=== PATIENT | female | born 1970 | race Caucasian/White ===

== ENCOUNTER 2024-08-29 13:27 | Emergency (ER) | payer OTHER, SELFPAY ==
[2024-08-29 13:32] VITALS: BP 119/91
[2024-08-29 13:33] VITALS: BP 119/91
--- NOTE | 2024-08-29 13:49 | ED.GENMED ---
History of Present Illness
General
Chief Complaint: Cardiac Symptoms
Source: patient
Time Seen by Provider: 08/29/24 13:37
History of Present Illness
History of Present Illness:
53-year-old female presents to the emergency room for evaluation of palpitations,, mild chest tightness, dizziness, nausea and vomiting. Symptoms have been present for the past 8 days or so. No known fever. Patient denies any sore throat. She
has a very mild headache. She has been ambulating without difficulty. Patient states she feels some dizziness when she looks downward. She states it may be a sense of motion but is vague about it. Patient is prescribed Lexapro but only takes it
rarely. She vapes nicotine. Patient has a history of a mastectomy and bilateral salpingo-oophorectomy for breast cancer. She has not taken any [id number]-[id number] medications. Patient was at an urgent care who referred her to the emergency room.
Phy Exam
Physical Exam
Physical Exam:
General: Awake, Alert, Oriented X3. No acute distress. Mildly anxious.
Vitals: unremarkable
Head: Atraumatic
Eyes: Pupils equal, EOMI
Throat: Airway intact, no exudates
Neck: Trachea midline
Lungs: Clear and equal b/l
Heart: Regular rate, no murmurs
Abd: Soft, Nontender, No pulsatile mass
Neuro: Nonfocal
Skin: Warm, dry, no rash
Extremities: pulses equal b/l, no edema
Course
Orders/Labs/Results
Orders:
Orders
08/29/24 13:29
Electrocardiogram (*1) Urgent
Reason for Study: Tachycardia
EKG- Treatment ONCE
08/29/24 13:42
Complete Blood Count/With Diff Urgent
08/29/24 13:48
0.9% Sodium Chloride 1000 ml [Nss] 1,000 ml IV BOLUS
08/29/24 13:50
Add On- LAB Urgent
Tests Added?: magnesium, phosphorous
08/29/24 14:09
Comprehensive Metabolic Panel Urgent
Magnesium Urgent
Phosphorus Urgent
08/29/24 14:38
Troponin I Urgent
08/29/24 15:24
Meclizine [Antivert] 25 mg PO NOW STA
08/29/24 15:25
CT Head W/o Iv Contrast Urgent
Comment:
Reason For Exam: dizzy
Abnormal Lab Results
08/29/24 08/29/24
13:42 14:09
MCH 31.8 H pg
(27.0-31.0)
BUN 18 H mg/dl
(7-17)
Glucose 112 H mg/dl
(70-99)
08/29/24 13:42
08/29/24 14:09
Vital Signs
Initial and Last Documented VS:
Initial Vital Signs
Temp
98.3 F
08/29/24 13:30
Last Documented Vital Signs
Temp Pulse Resp BP Pulse Ox
98.3 F 82 12 126/80 99
08/29/24 13:30 08/29/24 18:00 08/29/24 18:00 08/29/24 18:00 08/29/24 18:00
MDM/Problems Addressed
Differential Diagnosis Includes:
PACs, PVCs, electrolyte abnormality, viral illness, BPPV
MDM/Problems Addressed:
Patient presents with multiple complaints including nausea, vomiting, dizziness, chest tightness, palpitations. EKG here is unremarkable. She has had no dysrhythmia noted on the monitoring engineer. Labs are reassuring. She is tolerated oral intake
here. CT of the head shows no acute abnormality. After discussing the results of her testing I had the patient ambulate about the room. She was able to do so without any difficulty. Her speech is clear. There is no evidence of an unstable
process necessitating further workup emergency room workup or hospitalization. Patient stable for discharge home and follow-up with her primary care provider. Suspect she has either a viral type illness or benign positional vertigo.
*Radiology
Radiology exam reviewed: radiology read reviewed
*Pulse Oximetry
Patient hypoxic: no
*EKG
Interpreted by ED Provider?: Yes
Heart Rate: 95
Rate: normal
Rhythm: sinus
Belva: normal axis
Interval: normal interval
QRS Pattern: normal QRS
Ischemia: no ischemia
*Learning Coach Interpretation
Rate: normal
Interpretation: normal
Heart Rate: 95
Rhythm: sinus
*Critical Care Note
Total Time (30-74mins, 75-104mins- exclusive of procedures): Not Applicable
ED Attending Note
-
Portions of this chart may have been created with voice recognition software.� Occasional wrong word or��sound alike� substitutions may have occurred due to the inherent limitations of voice recognition software.
Discharge Plan
Departure
Patient Disposition: Home (Routine Discharge)
Date of Disposition: 08/29/24
Time of Disposition: 18:11
Patient with high blood pressure during this ER visit?: No
Condition: Good
Discharge Problem:
Palpitations, Dizziness
Instructions: Dizziness in adults - ED discharge instructions, Chest Pain PCP Follow Up
Referrals:
Abebe Pack, DO [Family Provider] -
Activity Restrictions/Additional Instructions:
You EKG, Head Ct and blood work (including a troponin) are all normal. Your vital signs have been normal as well. I suspect your dizziness is benign positional vertigo or a viral illness. You can take meclizine, which you can get over the
counter, if the dizziness continues to bother you. There is no evidence for an unstable condition and we recommend you follow up with your family doctor.
Interventions
Interventions:
*Risk Screen - Suicide Last Done: 08/29/24 13:34
*General Assessment Last Done: 08/29/24 13:34
*Neglect/Abuse Screening Last Done: 08/29/24 13:34
*ED- Fall Risk Assessment Last Done: 08/29/24 13:34
*ED COVID-19 Vaccine History Last Done: 08/29/24 13:34
*Nursing Disposition Last Done: 08/29/24 18:27
ED- Pulmonary Assessment Last Done: 08/29/24 13:58
ED- Cardiac Assessment Last Done: 08/29/24 13:58
Discharge Date and Time
Discharge Date/Time: 08/29/24 18:28
Print Language: MAURITIAN
[2024-08-29 13:54] LABS: % Basophils 0.7 % (0-2); % Eosinophils 0.3 % (0-6); % Immature Granulocytes 0.3 % (0-0.5); % Lymphocytes 22.1 % (20.5-51.1); % Monocytes 7.6 % (1.7-9.3); Absolute Basophils 0.1 10^3/uL (0-0.2); Absolute Lymphocytes 1.6 10^3/uL (1.2-3.4); Absolute Monocytes 0.5 10^3/uL (0.1-0.6); Absolute Neutrophils 4.9 10^3/uL (1.4-6.5); Hematocrit 45.9 % (37.0-47.0); Hemoglobin 15.9 g/dL (12.0-16.0); Mean Corp Hgb Conc. 34.6 g/dL (33.0-37.0); Mean Corpuscular Hgb 31.8 pg (27.0-31.0); Mean Corpuscular Volume 91.8 fL (81.0-99.0); Mean Platelet Volume 9.8 fL (7.4-10.4); Nucleated Red Blood Cells % 0 %; Platelet Count 253 10^3/uL (130-400); Red Cell Dist. Width 12.2 % (11.5-14.5); White Blood Cell Count 7.1 10^3/uL (4.8-10.8)
[2024-08-29] MEDS: NSS 1000 IV (13:55)
[2024-08-29 14:00] VITALS: BP 124/97
[2024-08-29 15:23] LABS: ALT (SGPT) 27 U/L (0-35); AST (SGOT) 25 U/L (14-36); Albumin 4.3 g/dl (3.5-5.0); Alkaline Phosphatase 43 U/L (38-126); Blood Urea Nitrogen 18 mg/dl (7-17); Calcium 9.7 mg/dl (8.4-10.2); Carbon Dioxide 28 mmol/L (22-30); Chloride 104 mmol/L (98-107); Estimated Creatinine Clearance 76 ml/min; Glucose 112 mg/dl (70-99); Magnesium 2.3 mg/dl (1.6-2.3); Phosphorus 3.7 mg/dl (2.5-4.5); Potassium 4.2 mmol/L (3.5-5.1); Sodium 141 mmol/L (135-145); Total Bilirubin 1.1 mg/dl (0.2-1.3); eGFR > 60.00
[2024-08-29 15:29] LABS: Troponin I < 0.012 ng/ml
[2024-08-29 16:00] VITALS: BP 111/84
[2024-08-29 16:46] VITALS: BP 109/80
[2024-08-29 18:00] VITALS: BP 126/80
== END 2024-08-29 18:28 | disposition home or self-care (01) ==
LOC: EMR 13:27
PROVIDERS: Emergency Medicine; EMERGENCY PHYSICIAN Emergency Medicine; FAMILY PHYSICIAN Family Medicine
DX: R00.2 Palpitations (principal); R42 Dizziness and giddiness; Z85.3 Personal history of malignant neoplasm of breast; Z90.13 Acquired absence of bilateral breasts and nipples; Z90.722 Acquired absence of ovaries, bilateral
CPT/HCPCS: 99284; 70450; 80053; 83735; 84100; 84484; 85025; 93005